=== PATIENT | male | born 1980 | race Two or more races ===

== ENCOUNTER 2025-01-10 06:45 | Day surgery (SDC) | payer MEDICAID, SELFPAY ==
[2025-01-09 14:38] VITALS: BMI 40.4
[2025-01-10] VITALS (8 sets, daily range): BP systolic 96–131; BP diastolic 60–84; PULSE 72–79; RESP 14–19; TEMP 36.7; O2SAT 94–99; BMI 39.9
[2025-01-10] MEDS: DiphenhydrAMINE INJ 50 MG/ML VIAL 25 MG IV (07:27)
[2025-01-10] MEDS: MIDAZOLAM INJ 1 MG/ML VIAL 2 ML (ASD USE ONLY) 2 MG IV (07:29)
[2025-01-10] MEDS: fentaNYL CIT INJ 50 mCg/ML AMP 2ML (ASD USE ONLY) IV (07:31)
== END 2025-01-10 08:25 | disposition home or self-care (01) ==
PROVIDERS: PCP Family Medicine; Referring Provider Surgery; Visit Provider Surgery
PROC: 0DBE8ZX Excision of Large Intestine, Via Natural or Artificial Opening Endoscopic, Diagnostic (ICD-10-PCS; CPT 45380; principal; 2025-01-10 07:30)
DX: Z12.11 Encounter for screening for malignant neoplasm of colon (principal); K64.0 First degree hemorrhoids; K57.30 Diverticulosis of large intestine without perforation or abscess without bleeding
CPT/HCPCS: 45378; J1200; J2250; J3010